=== PATIENT | male | born 1955 | race American Indian/Alaskan Native ===

== ENCOUNTER 2019-02-03 16:14 | Emergency (ER) | payer SELFPAY ==
[2019-02-03 16:53] VITALS: BP 129/66
--- NOTE | 2019-02-03 16:54 | Event Note ---
ED Screening Note Date of service: 02/03/19 Time: 16:50 ED Screening Note: This is a 63 y.o. M. that presents to the ER s/p fall this morning around 1050. Patient states he slipped and fell in a [place] on [address] landing on left side. Reports pain to left sided ribs worse with deep breaths and movement. Denies loc This initial assessment/diagnostic orders/clinical plan/treatment(s) is/are subject to change based on patients health status, clinical progression and re- assessment by fellow clinical providers in the ED. Further treatment and workup at subsequent clinical providers discretion. Patient/guardian urged not to elope from the ED as their condition may be serious if not clinically assessed and managed. Initial orders include: XR left ribs
--- NOTE | 2019-02-03 17:23 | Emergency Department Report ---
ED Back Pain/Injury HPI - General Chief Complaint: Fall Stated Complaint: FALL INJURY/PAIN Time Seen by Provider: 02/03/19 16:50 Source: patient Limitations: No Limitations - History of Present Illness Initial Comments: 63 YO COMES TO ER WITH L SIDE PAIN SP GLF THIS AM AT THE [employer]. HE SLIPPED ON WET WATER. NO LOC. MECHANICAL. NO CUTS/ABRASIONS/LACS AMBULATORY TO [facility] Complaint: back pain -: Sudden Similar Symptoms Previously: Yes Place: home Radiation: none Severity: moderate Improves With: immobilization Worsens With: movement Associated Symptoms: denies other symptoms - Related Data Previous Rx's Medication Instructions Recorded Last Taken Type Ibuprofen [Motrin] 800 mg PO Q8HR PRN #30 tablet 02/03/19 Unknown Rx traMADol [Ultram] 50 mg PO Q6HR PRN #10 tablet 02/03/19 Unknown Rx Allergies Allergy/AdvReac Type Severity Reaction Status Date / Time No Known Allergies Allergy Unverified 02/03/19 16:17 ED Review of Systems ROS: Stated complaint: FALL INJURY/PAIN Other details as noted in HPI Comment: All other systems reviewed and negative ED Past Medical Hx - Past Medical History PREVIOUS BROKEN LEFT RIBS Family history: no significant family history ED Back Pain Physical Exam - Exam General: Vital signs noted. No distress. Alert and acting appropriately. Back/Abdomen: No Abdominal Tenderness, No Perithoracic Tenderness, No Perilumbar Tenderness, No Sacroiliac Tenderness, No Flank Tenderness, No Straight Leg Raise Pain Neuro: Yes Normal Sensation, Yes Normal DTR's, Yes Normal Gait, No Motor Weakness ED Course Vital Signs 02/03/19 16:50 Temperature 98.1 F Pulse Rate 89 Respiratory 16 Rate Blood Pressure 129/66 [Left] O2 Sat by Pulse 97 Oximetry Ed Back Pain Tests - Tests Tests: Normal X Rays ED Medical Decision Making - Radiology Data Radiology results: report reviewed, image reviewed - Medical Decision Making XRAY NEG FOR ACUTE FX PT DECLINES TORADOL ASKING FOR WORK NOTE DC HOME WITH DC PLAN OF CARE AND PCP FOLLOW UP Vital Signs 02/03/19 16:50 Temperature 98.1 F Pulse Rate 89 Respiratory 16 Rate Blood Pressure 129/66 [Left] O2 Sat by Pulse 97 Oximetry - Differential Diagnosis RO RIB FX Critical care attestation.: If time is entered above; I have spent that time in minutes in the direct care of this critically ill patient, excluding procedure time. ED Disposition Clinical Impression: Fall from ground level, Contusion of rib on left side Disposition: DC-01 TO HOME OR SELFCARE Is pt being admited?: No Does the pt Need Aspirin: No Condition: Stable Instructions: Contusion in Adults (ED) Additional Instructions: DEEP BREATHING MEDS ORDERED FOLLOW UP WITH PCP Prescriptions: Ibuprofen [Motrin] 800 mg PO Q8HR PRN #30 tablet PRN Reason: Pain, Moderate (4-6) traMADol [Ultram] 50 mg PO Q6HR PRN #10 tablet PRN Reason: Pain Referrals: EVELYN ALTAMIRANO MD [Staff Physician] - 3-5 Days Forms: Work/School Release Form(ED) Time of Disposition: 17:37
--- NOTE | 2019-02-03 17:32 | XRay Report ---
CHEST WITH LEFT RIBS 4 VIEWS. INDICATION / CLINICAL INFORMATION: rib pain 4th-8th s/p fall, r/o fx COMPARISON: None available. FINDINGS: BONES / JOINT(S): Old left-sided rib fractures. Negative for acute injury. No significant arthritis. SOFT TISSUES: Negative for significant lung infiltrate or pleural fluid. ADDITIONAL FINDINGS: None. Signer Name: Clay Henderson MD Signed: 02/03/2019 5:27 PM Workstation Name: [id number]
== END 2019-02-03 17:51 | disposition home or self-care (01) ==
LOC: ED 16:14
DX: S20.212A Contusion of left front wall of thorax, initial encounter (principal); W18.30XA Fall on same level, unspecified, initial encounter; Y93.89 Activity, other specified; Y92.410 Unspecified street and highway as the place of occurrence of the external cause; Y99.8 Other external cause status